=== PATIENT | female | born 1950 | race Caucasian/White ===

== ENCOUNTER → 2017-04-18 | Outpatient (CLI) | payer BC | LOC: MC.RAD 13:11 | DX: Z12.31 Encounter for screening mammogram for malignant neoplasm of breast (principal) ==

== ENCOUNTER 2020-02-17 13:40 | Outpatient (CLI) | payer BC ==
[~2020-02-17] VITALS: Ht 160 cm; Wt 75.0 kg
[2020-02-17 15:01] VITALS: BP 145/69; PULSE 72; TEMP 98.2
[2020-02-17 15:31] VITALS: BP 141/75; PULSE 78
[2020-02-17] MEDS ORDERED: CORICIDIN HBP1 EACH PO (15:48)
[2020-02-17] MEDS ORDERED: NASACORT OTC NS (15:49)
[2020-02-17 16:07] VITALS: BP 103/88; PULSE 76
[2020-02-17 16:34] VITALS: BP 147/69; PULSE 75; TEMP 97.9
[2020-02-17 17:00] VITALS: BP 148/84; PULSE 77
[2020-02-17 17:25] VITALS: BP 150/43; PULSE 81; TEMP 98.5
== END 2020-02-17 17:26 | disposition home or self-care (01) ==
LOC: EUO 13:40
DX: U07.1 COVID-19 (principal)
CPT/HCPCS: J7050

== ENCOUNTER → 2021-02-06 | Outpatient (CLI) | payer BC ==
[~2021-02-06] MED LIST: CORICIDIN HBP1 EACH PO; NASACORT OTC NS
== END ==
LOC: MC.RAD 08:24
DX: Z12.31 Encounter for screening mammogram for malignant neoplasm of breast (principal)

== ENCOUNTER → 2023-02-14 | Outpatient (CLI) | payer BC | LOC: MC.RAD 14:15 | DX: Z12.31 Encounter for screening mammogram for malignant neoplasm of breast (principal) ==